=== PATIENT | male | born 1985 | race Caucasian/White ===

== ENCOUNTER → 2020-03-05 08:44 | Outpatient (BNVA) | payer BC, SELFPAY | PROVIDERS: PCP Physician Assistant Medical; Referring Provider Physician Assistant Medical; Visit Provider Surgery | DX: Z76.89 Persons encountering health services in other specified circumstances (principal) ==

== ENCOUNTER 2020-03-10 16:14 | Outpatient (REF) | payer BC, SELFPAY ==
[2020-03-10 17:02] LABS: Hematocrit 45.3 % (42-52); Hemoglobin 15.4 g/dl (14.0-18.0); Mean Corpuscular Volume 85.3 fL (80-98); Mean Platelet Volume 11.9 fL (9.4-12.4); Platelet Count 109 X10*3/uL (160-400); Red Blood Count 5.31 X10*6/uL (4.60-5.80); Red Cell Distribution Width 13.4 % (11.0-16.0)
[2020-03-10 17:11] LABS: Glucose Urine UA NEG (NEG); Leukocyte Esterase Urine NEG (NEG); Nitrite Urine NEG (NEG); Specific Gravity - Urine 1.015 (1.005-1.025); Urine Blood NEG (NEG); Urine Ketones NEG (NEG); Urine Protein NEG (NEG-TRACE)
[2020-03-10 17:34] LABS: Appearance Urine CLEAR; Color Urine YELLOW
[2020-03-10 19:20] LABS: SARS COV2 PCR INHOUSE NEGATIVE (Negative)
== END 2020-03-10 16:15 | disposition home or self-care (01) ==
LOC: HO.LAB 16:14
PROVIDERS: PCP Physician Assistant Medical; Visit Provider Surgery
DX: K40.90 Unilateral inguinal hernia, without obstruction or gangrene, not specified as recurrent (principal); Z20.828 Contact with and (suspected) exposure to other viral communicable diseases
CPT/HCPCS: 36415; 81003; 85027; 87635

== ENCOUNTER 2020-03-11 09:25 | Day surgery (SDC) | payer BC, SELFPAY ==
[2020-03-10 14:09] VITALS: BMI 34.5
--- NOTE | 2020-03-10 14:35 | HO.ANESPROP2 ---
Documented by User: Nely Hernandez 03/10/20 14:56 HPI - Anesthesia Eval Consult details Narrative: 34yo M for Right Inguinal Hernia Repair s/p gastric sleeve 07/2019 with GA-ETT 8 PMFSH Past Medical History Medical History Anxiety Depression History of pancreatitis Obesity (BMI 30-39.9) Recovering alcoholic in remission Family History Family History Father HTN (hypertension) Mother No problems noted. Sister No problems noted. Sister No problems noted. Surgical History Surgical History History of open reduction and internal fixation (ORIF) procedure Status post laparoscopic sleeve gastrectomy Social History Social History Alcohol intake: former Year quit: 2017 Smoking Status: Current every day smoker Tobacco Type: Cigarette Packs Per Day: 1 Cigarettes Per Day: 20.0 Years Smoked: 10 Smoked in Last 30 Days: Yes Patient Given Instructions on How to Stop Smoking: Yes Date Education Initiated: 03/10/20 Use of substances other than those prescribed or required for medical reasons: No Advance Directives: No ([place]) Advance Directives Information Provided: No Advance Directives on File: No Recently lost weight without trying: No 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 Current occupational exposures/hazards: No Meds Allergies Allergy/AdvReac Type Severity Reaction Status Date / Time codeine [CODEINE] Allergy Intermediate UPSET Verified 03/11/20 09:20 STOMACH Home Medications Medication Instructions Recorded Confirmed Type hydroxyzine HCl 50 mg tablet 50 mg PO DAILY 03/05/20 03/10/20 History magnesium oxide 400 mg (241.3 mg 400 mg PO BID 03/05/20 03/10/20 History magnesium) tablet naltrexone 50 mg tablet 50 mg PO DAILY 03/05/20 03/10/20 History sertraline 100 mg tablet 100 mg PO DAILY 03/05/20 03/10/20 History trazodone 50 mg tablet 50 mg PO BEDTIME PRN 03/05/20 03/10/20 History zolpidem 10 mg tablet 10 mg PO BEDTIME PRN 03/05/20 03/10/20 History Exam Exam Date and Time: March 10, 2020 1435 Height,Weight and Vital Signs: Height 5 ft 9 in Weight 106.141 kg Documented by User: Christopher Feldman 03/11/20 10:23 [facility] Past Medical History Medical History Anxiety Depression History of pancreatitis Obesity (BMI 30-39.9) Recovering alcoholic in remission Family History Family History Father HTN (hypertension) Mother No problems noted. Sister No problems noted. Sister No problems noted. Surgical History Surgical History History of open reduction and internal fixation (ORIF) procedure Status post laparoscopic sleeve gastrectomy Social History Social History Alcohol intake: former Year quit: 2017 Smoking Status: Current every day smoker Tobacco Type: Cigarette Packs Per Day: 1 Cigarettes Per Day: 20.0 Years Smoked: 10 Smoked in Last 30 Days: Yes Patient Given Instructions on How to Stop Smoking: Yes Date Education Initiated: 03/10/20 Use of substances other than those prescribed or required for medical reasons: No Advance Directives: No ([place]OWN) Advance Directives Information Provided: No Advance Directives on File: No Recently lost weight without trying: No 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 Current occupational exposures/hazards: No Meds Allergies Allergy/AdvReac Type Severity Reaction Status Date / Time codeine [CODEINE] Allergy Intermediate UPSET Verified 03/11/20 09:20 STOMACH Home Medications Medication Instructions Recorded Confirmed Type hydroxyzine HCl 50 mg tablet 50 mg PO DAILY 03/05/20 03/10/20 History magnesium oxide 400 mg (241.3 mg 400 mg PO BID 03/05/20 03/10/20 History magnesium) tablet naltrexone 50 mg tablet 50 mg PO DAILY 03/05/20 03/10/20 History sertraline 100 mg tablet 100 mg PO DAILY 03/05/20 03/10/20 History trazodone 50 mg tablet 50 mg PO BEDTIME PRN 03/05/20 03/10/20 History zolpidem 10 mg tablet 10 mg PO BEDTIME PRN 03/05/20 03/10/20 History Exam Airway Mallampati Class: II TM Dist: >3cm Neck ROM: Full Loose/Missing/Broken Teeth: No Heart: [id number] Lungs: cta b/l Assessment and Plan Assessment Anesthesia Assessment: Anesthesia Plan Discussed, PAT Visit and Chart Reviewed Final Anesthetic Review NPO: Yes ASA Class: II Final Preanesthetic Review: No Changes in Pt Med Stat, Meds/Allgs Chart Reviewed, Consent Obtained/Reviewed and Anes Risks/Benef Reviewed Patient Risk: Low Procedure Risk: Low Anesthetic Plan Anesthetic Plan: GA Disposition: Standard PACU
[2020-03-11] VITALS (9 sets, daily range): BP systolic 116–145; BP diastolic 55–72; PULSE 47–64; RESP 14–18; TEMP 36.4; O2SAT 94–98
--- NOTE | 2020-03-11 07:35 | MHC.SHP ---
Pre-Procedural Eval Section A The patient is an INPATIENT: No Changes since office visit: No Cold of Flu in the past 2 weeks, No New Medical Problems, No Changes in Medication and No Patient answered all questions The History & Physical has been completed within 30 days and I have reviewed it.: Yes Section B Chief Complaint: hernia Allergies: Allergies Allergy/AdvReac Type Severity Reaction Status Date / Time codeine [CODEINE] Allergy Intermediate UPSET Unverified 03/05/20 09:53 STOMACH Plan Patient has been examined and remains a candidate for the planned procedure
[2020-03-11] MEDS: ceFAZolin Sodium/Dextrose,Iso 2 GM/50 ML PIGGYBACK IV (10:03)
[2020-03-11] MEDS: Lactated Ringers 1,000 ML 125 ML IVCONT (10:04)
[2020-03-11] MEDS: oxyCODONE HCl Immed Release 5 MG TABLET PO (12:58)
--- NOTE | 2020-03-11 14:16 | OP_ITS ---
SURGEON: Elena Gongora MD PREOPERATIVE DIAGNOSIS: Right inguinal hernia. POSTOPERATIVE DIAGNOSIS: Right inguinal hernia. PROCEDURE PERFORMED: Repair of right inguinal hernia with mesh. ESTIMATED BLOOD LOSS: Less than 10 mL. COMPLICATIONS: None. ANESTHESIA: General endotracheal. ASSISTANTS: Keyanna Quinn PA-C. SPECIMENS: Right inguinal hernia sac. FINDINGS: Indirect inguinal hernia that was large and somewhat scarred in. CONDITION: Postprocedure, good. DESCRIPTION OF PROCEDURE: The patient was brought into the operating room, placed on operating table in supine position. Normal DVT prophylaxis was instituted. The patient has already had a shave prep to the right groin and lower abdomen. The right groin was prepped and draped in normal sterile fashion using ChloraPrep. Next, a safety time-out was performed. Next, a mixture of 1% lidocaine with epinephrine 0.25% Marcaine plain was used to anesthetize the planned incision site, which was in the right groin. A #15 scalpel was used to make a 4 to 5 cm transverse surgical incision in the right groin. The subcutaneous tissues were dissected down to the level of the external oblique aponeurosis. The external oblique aponeurosis was cleared off and then was anesthetized using a mixture of local with the previously described. A #15 scalpel was used to make a small incision in the external oblique aponeurosis in the direction of the fibers. This was carried distally using the Metzenbaum scissors through the external inguinal ring. The cord and cord structures were dissected off the overlying aponeurosis. The cord and cord structures were dissected free from the surrounding tissues and then encircled using a [place] drain. We cleared off the floor of the inguinal canal and the pubic tubercle. We noted that there was a large bulge in the proximal cord and cord structures. We cleared the hernia sac away from the cord and cord structures and then performed a high ligation of the hernia sac, resecting the hernia sac and sent for pathology. We then reduced the hernia sac and a lipoma of the cord into the preperitoneal space. We chose a large hernia system mesh and placed the preperitoneal portion within the preperitoneum. We sutured this preperitoneal portion to the pubic tubercle distally to the shelving edge of the inguinal ligament laterally with several interrupted #1 Prolene sutures and medially to the conjoined tendon with several interrupted #1 Prolene sutures. We cut and encircled the cord and cord structures proximally, reapproximated the cut tails of the overlying mesh to each other using a [id number] #1 Prolene suture. We tucked the overlying portion of the mesh under the external oblique aponeurosis and then reapproximated the external oblique aponeurosis to itself using a running 2-0 Vicryl suture. We then placed local anesthetic into the fascia and to the subcutaneous tissues. We reapproximated the deep dermal tissues using several interrupted 3-0 Vicryl sutures. Overlying skin was closed with 4-0 Monocryl subcuticular stitch. We cleaned and dried the skin and applied Dermabond skin glue to the skin incision. All counts were correct at the end of the case. There were no complications. The patient was awakened in stable condition prior to extubation and transferred to recovery room. MD VALARIE Mayo/VERITOL / [id number]
== END 2020-03-11 14:45 | disposition home or self-care (01) ==
PROVIDERS: Surgery; PCP Physician Assistant Medical; Visit Provider Anesthesiology
PROC: (CPT 49505; principal; 2020-03-11 10:50)
DX: K40.90 Unilateral inguinal hernia, without obstruction or gangrene, not specified as recurrent (principal); D17.6 Benign lipomatous neoplasm of spermatic cord; F10.21 Alcohol dependence, in remission; F41.8 Other specified anxiety disorders; F17.210 Nicotine dependence, cigarettes, uncomplicated; Z88.8 Allergy status to other drugs, medicaments and biological substances; Z79.899 Other long term (current) drug therapy; Z98.84 Bariatric surgery status
CPT/HCPCS: 49505; 86850; 86900; 86901; 88302; C1781; J0131; J0690; J1100; J1170; J2250; J2405; J3010

== ENCOUNTER 2020-03-17 13:42 | Outpatient (REF) | payer BC, SELFPAY ==
--- NOTE | 2020-03-17 13:47 | CT_ITS ---
EXAMINATION: CT ABDOMEN AND PELVIS WITH CONTRAST CLINICAL INFORMATION: Right upper quadrant pain post gastric bypass COMPARISON: Previous abdominal ultrasound February 2019 TECHNIQUE: Multidetector volumetric images were obtained from the superior aspect of the liver through the pubic symphysis following administration 85 mL of Omnipaque 350 intravenous contrast. Sagittal and coronal reformatted images were obtained on the technologist's workstation. Oral contrast: No This CT examination was performed using dose optimization techniques as appropriate, variously including the following: *Automated exposure control *Adjustment of mA and/or kV according to patient size (this includes techniques or standardized protocols for targeted exams where dose is matched to indication/reason for exam; i.e. extremities or head) *Use of iterative reconstruction technique DLP: 793 mGy-cm FINDINGS: LUNG BASES: The visualized lung bases are unremarkable. LIVER, GALLBLADDER, AND BILIARY TREE: The liver is enlarged. The right lobe measures 20 cm in length. The liver is slightly low in attenuation suggestive of fatty infiltration. The liver is normal in contour. No focal liver lesion is seen. The gallbladder is contracted. There is no biliary duct dilatation. PANCREAS: There is a bilobed low-attenuation lesion in the tail of the pancreas. Measured as 2 adjacent lesions in these measure 1.5 x 2 and 2.4 x 1.8 cm in transverse and AP dimension measured as one bilobed lesion this measures approximately 3.6 x 2.3 cm in transverse and AP dimension. Hounsfield units measure between 23 and 40 postcontrast not compatible with a simple cyst. It may have a small calcification. It is uncertain whether this represents a complex cystic or solid lesion. The head and body of pancreas are normal. The splenic vein is occluded. There are extensive perigastric and perisplenic collateral vessels. SPLEEN: Unremarkable. ADRENAL GLANDS: Unremarkable. KIDNEYS AND URETERS: There is a small 1 cm cyst exophytic to the lateral mid left kidney. The kidneys are otherwise unremarkable. BLADDER: Bladder is not optimally distended and not well evaluated. GASTROINTESTINAL TRACT: Small and large bowel is unremarkable. The appendix is unremarkable. There are postsurgical changes from gastric sleeve procedure. The stomach is otherwise normal. No abnormal air or fluid collection is seen. ABDOMINAL WALL: There are postsurgical changes in the right inguinal region with soft tissue thickening, stranding of the subcutaneous fat and skin thickening. There are several small pockets of fluid and air seen. Appearance is compatible with postsurgical changes given history of recent right inguinal hernia repair less than a week ago. LYMPH NODES: There are small abdominal retroperitoneal lymph nodes. There are prominent right inguinal lymph nodes.. VASCULAR: The splenic vein is occluded. There are extensive perigastric and perisplenic collateral vessels seen. The SMV and main portal vein are patent. PELVIC VISCERA: There is a large 3 x 3 x 4.5 cm cyst in the central prostate gland. Hounsfield units following contrast measure between 25 and 30 suggestive of a complex cyst. There is a small amount of fluid in the pelvis superior to the bladder. OSSEOUS STRUCTURES: There are mild degenerative changes of the spine. There is slight loss of height of the lower thoracic vertebral bodies, T10, T11 and T12 questionable for mild old compression fractures versus developmental variant. IMPRESSION: Bilobed low-attenuation lesion in the tail of the pancreas questionable for complex cystic versus solid lesion. 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 Neoplasm and complex pseudocyst should be considered. Follow-up dedicated pancreatic imaging with CT or MR recommended. Postoperative change from gastric sleeve. Hepatosplenomegaly. Fatty liver. Large 3 x 3 x 4.5 cm cyst in the central prostate gland probably representing a complex cyst. Abscess should be excluded. Post surgical changes in the right inguinal region. Findings will be communicated by the [place] work flow face hardener Mary Guadarrama.
[2020-03-17] MEDS: iohexoL 350 MG/ML 100 ML INFUS..BTL IV (15:36)
[2020-03-17] MEDS: Barium Sulfate Oral (Mocha) 450 ML ORAL.SUSP 900 ML PO (15:37)
== END 2020-03-17 13:43 | disposition home or self-care (01) ==
LOC: HO.CT 13:42
PROVIDERS: Visit Provider Surgery
DX: K40.90 Unilateral inguinal hernia, without obstruction or gangrene, not specified as recurrent (principal); E66.9 Obesity, unspecified; R10.11 Right upper quadrant pain; Z98.84 Bariatric surgery status
CPT/HCPCS: 74177

== ENCOUNTER → 2020-03-23 08:08 | Outpatient (BNVA) | payer BC, SELFPAY | PROVIDERS: PCP Physician Assistant Medical; Referring Provider Family Medicine; Visit Provider Surgery | DX: Z13.89 Encounter for screening for other disorder (principal) ==

== ENCOUNTER 2020-04-03 12:53 | Outpatient (REF) | payer BC, SELFPAY ==
--- NOTE | 2020-04-03 12:56 | CT_ITS ---
EXAMINATION: CT ABDOMEN AND PELVIS WITHOUT AND WITH CONTRAST CLINICAL INFORMATION: Follow-up abnormal pancreas COMPARISON: Previous CT of the abdomen and pelvis February 2020 and abdominal ultrasound February 2019 TECHNIQUE: Multidetector volumetric imaging was performed of the abdomen and pelvis before and after the IV administration of 85 mL of Omnipaque 300 intravenous contrast. Sagittal and coronal reformatted images were obtained on the technologist's workstation. This CT examination was performed using dose optimization techniques as appropriate, variously including the following: *Automated exposure control *Adjustment of mA and/or kV according to patient size (this includes techniques or standardized protocols for targeted exams where dose is matched to indication/reason for exam; i.e. extremities or head) *Use of iterative reconstruction technique DLP: 1683 mGy-cm FINDINGS: LUNG BASES: There is a 6 x 10 mm groundglass attenuation nodule in the right lower lobe. This is new from recent exam 03/17/2020 favoring an infectious or inflammatory process. The lung bases are otherwise clear. LIVER, GALLBLADDER, AND BILIARY TREE: The liver is normal in size, shape, and attenuation. No focal hepatic lesion or biliary ductal dilatation is present. The gallbladder is unremarkable with no evidence of radiopaque gallstones, gallbladder wall thickening, or obvious pericholecystic inflammatory changes. PANCREAS: There is a bilobed cystic lesion in the tail of the pancreas. Measured as 2 cysts, these measure 1.7 x 1.8 cm and 2.5 x 2.2 cm. Measured as one bilobed cystic lesion with septation, these measure 2.6 x 4 cm. Hounsfield units precontrast measure 11. Hounsfield units post-IV contrast measure between 17 and 25 with minimal evidence of enhancement. There does appear to be areas of wall thickening and minimal wall enhancement. No definite solid component is seen. The pancreas is otherwise unremarkable. The main pancreatic duct does not appear dilated. SPLEEN: The spleen is slightly enlarged measuring 16.3 cm in length. ADRENAL GLANDS: Unremarkable KIDNEYS AND URETERS: There are small bilateral renal cysts. BLADDER: Not optimally distended. GASTROINTESTINAL TRACT: The small and large bowel are unremarkable. The appendix is unremarkable. There are postsurgical changes from gastric sleeve procedure. ABDOMINAL WALL: There are postsurgical changes to the right inguinal region following hernia repair. These appear improved from February 2020 CT scan. LYMPH NODES: There are small retroperitoneal lymph nodes. No enlarged lymph nodes are seen. There is trace ascites in the pelvis. VASCULAR: The splenic vein is occluded. The SMV and portal vein are patent. There are left upper quadrant varices adjacent to the spleen and stomach. PELVIC VISCERA: There is a 2.6 cm cyst in the central prostate gland. The prostate gland does not appear enlarged. OSSEOUS STRUCTURES: There are degenerative changes of the spine. There may be a unilateral left L5 pars defect. There is left-sided facet arthritis at L5-S1. There is slight loss of height of the lower thoracic vertebral bodies questionable for old mild compression fractures versus developmental variant. CT/CT abdomen pelvis wo/w con IMPRESSION: Bilobed complex cystic lesion in the tail of the pancreas with minimal wall thickening and enhancement. The main pancreatic duct does not appear dilated. Occluded splenic vein and varices. Enlarged spleen. Differential would include pancreatic pseudocyst related to previous pancreatitis and neoplasm. Postsurgical changes following gastric sleeve and right inguinal hernia repair. Small bilateral renal cysts. Stable 2.6 cm cyst in the prostate gland. New subcentimeter groundglass attenuation right lower lobe nodule from February 2020 probably representing an infectious or inflammatory process.
[2020-04-03] MEDS: iohexoL 350 MG/ML 100 ML INFUS..BTL IV (15:12)
[2020-04-03] MEDS: Barium Sulfate Oral (Berry) 450 ML ORAL.SUSP 900 ML PO (15:19)
== END 2020-04-03 12:54 | disposition home or self-care (01) ==
LOC: HO.CT 12:53
PROVIDERS: Visit Provider Surgery
DX: R10.11 Right upper quadrant pain (principal); Z98.84 Bariatric surgery status
CPT/HCPCS: 74178; Q9967

== ENCOUNTER → 2020-05-01 07:57 | Outpatient (BNVA) | payer BC, SELFPAY | PROVIDERS: PCP Physician Assistant Medical; Referring Provider Physician Assistant Medical; Visit Provider Surgery | DX: Z76.89 Persons encountering health services in other specified circumstances (principal) ==

== ENCOUNTER → 2020-05-12 09:36 | Outpatient (BNVA) | payer BC, SELFPAY | PROVIDERS: PCP Physician Assistant Medical; Referring Provider Physician Assistant Medical; Visit Provider Internal Medicine Gastroenterology | DX: Z76.89 Persons encountering health services in other specified circumstances (principal) ==

== ENCOUNTER 2020-06-03 16:34 | Outpatient (REF) | payer OTHER, SELFPAY ==
--- NOTE | 2020-06-03 16:36 | MR_ITS ---
EXAMINATION: MR ABDOMEN WITHOUT AND WITH CONTRAST CLINICAL INFORMATION: Lesion pancreatic tail on CT. COMPARISON: Ultrasound abdomen 03/25/2019, CT abdomen and pelvis with contrast 03/17/2020, CT abdomen and pelvis without and with contrast 04/03/2020. TECHNIQUE: MR abdomen was performed without and with use of 10 mL intravenous Gadavist gadolinium contrast. Imaging was performed in 3 planes. Additional MRCP sequence included. FINDINGS: LUNG BASES: The visualized lung bases are unremarkable. LIVER, GALLBLADDER, AND BILIARY TREE: Liver is normal in size and smooth in contour and normal in signal. There is no focal hepatic parenchymal lesion. No hepatic enhancing lesion or lesion with washout. The gallbladder is unremarkable with no evidence of gallbladder wall thickening, or obvious pericholecystic inflammatory changes. PANCREAS: The pancreatic head and neck and body are unremarkable. There is no mass or ductal dilatation or peripancreatic inflammatory changes. The bilobed lesion pancreatic tail noted on CT measures approximately 2.4 x 3.3 cm. It has mild heterogeneous signal similar to pancreatic parenchymal signal on noncontrast T1 and T2 with a single focus of increased T2 signal internally measuring under 1 cm. There is no appreciable enhancement on arterial or portal venous phase imaging and probable mild enhancement on delayed imaging, similar to the CT exam. SPLEEN: Enlarged measuring 15.3 cm. Parenchyma uniform in signal. ADRENAL GLANDS: Normal. KIDNEYS AND URETERS: The kidneys are normal in size, shape, and enhance symmetrically. No hydronephrosis. No perinephric stranding. Again, there is a small exophytic lesion posterior left kidney measuring 1 cm. There is some trace posterior rim enhancement. No internal solid nodular component. GASTROINTESTINAL TRACT: Status post gastric sleeve. ABDOMINAL WALL: No significant hernia is appreciated. LYMPH NODES: No lymphadenopathy. VASCULAR: Numerous venous collaterals left upper quadrant. The splenic vein does not enhance. Findings similar to CT. OSSEOUS STRUCTURES: Marrow signal normal. MR/MR abdomen wo/w con IMPRESSION: 1. Nonspecific pancreatic tail lesion similar to recent CT study with probable mild delayed enhancement. The lesion is not consistent with a simple pseudocyst. PET/CT may be helpful to further characterize and assist with risk assessment. 2. Splenomegaly with splenic vein occlusion and numerous left upper quadrant venous collaterals similar to recent imaging. No ascites. 3. Mildly complicated 1 cm left renal cyst.
== END 2020-06-03 16:35 | disposition home or self-care (01) ==
LOC: HO.MRI 16:34
PROVIDERS: Visit Provider Internal Medicine Gastroenterology
DX: K86.9 Disease of pancreas, unspecified (principal)
CPT/HCPCS: 74183; A9585

== ENCOUNTER → 2020-06-08 08:16 | Outpatient (BNVA) | payer BC, SELFPAY | PROVIDERS: PCP Physician Assistant Medical; Visit Provider Surgery | DX: Z76.89 Persons encountering health services in other specified circumstances (principal) ==

== ENCOUNTER → 2020-07-15 08:21 | Outpatient (BNVA) | payer OTHER, SELFPAY | PROVIDERS: PCP Physician Assistant Medical; Visit Provider Surgery ==

== ENCOUNTER → 2020-08-31 09:51 | Outpatient (BNVA) | payer OTHER, SELFPAY | PROVIDERS: PCP Physician Assistant Medical; Visit Provider Surgery ==

== ENCOUNTER → 2020-09-17 15:35 | Outpatient (BNVA) | payer OTHER, SELFPAY | PROVIDERS: PCP Physician Assistant Medical; Visit Provider Surgery ==

== ENCOUNTER 2020-10-07 09:40 | Day surgery (SDC) | payer OTHER, SELFPAY ==
[2020-10-01 20:25] VITALS: BMI 31.9
--- NOTE | 2020-10-06 08:59 | HO.ANESPROP2 ---
Documented by User: Nely Nolandney 10/06/20 09:00 HPI - Anesthesia Eval Consult details Narrative: 35yo M for Left Inguinal Hernia Repair s/p R inguinal hernia with GA-LMA 5 02/2020 s/p gastric sleeve 07/2019 PMFSH Active Problems Active Problems: All Active Problems (Updated 09/17/20 @ 16:32 by Elena Gongora MD) Left inguinal hernia (Acute) Preoperative examination (Acute) BMI 34.0-34.9,adult (Acute) BMI 32.0-32.9,adult (Acute) BMI 33.0-33.9,adult (Acute) Obesity (Acute) Pancreatic lesion (Acute) Cyst of prostate (Acute) Right inguinal hernia (Acute) Obesity (BMI 30-39.9) (Acute) Past Medical History Medical History Anxiety Depression History of pancreatitis Obesity (BMI 30-39.9) Pancreatic lesion Recovering alcoholic in remission Sinus bradycardia Family History Family History Father HTN (hypertension) Mother No problems noted. Sister No problems noted. Sister No problems noted. Surgical History Surgical History History of hernia repair History of open reduction and internal fixation (ORIF) procedure Hx of endoscopy Status post laparoscopic sleeve gastrectomy Social History Social History Alcohol intake: former Year quit: 2017 Smoking Status: Current every day smoker Tobacco Type: Cigarette Packs Per Day: 0.5 Cigarettes Per Day: 10.0 Years Smoked: 10 Smoked in Last 30 Days: Yes Patient Given Instructions on How to Stop Smoking: Yes Date Education Initiated: 10/01/20 Second Hand Smoke Exposure: No Use of substances other than those prescribed or required for medical reasons: Yes Substance Use Type: Marijuana Substance Use Frequency: Weekly Are you DNR?: No Advance Directives: No Advance Directives Information Provided: No Advance Directives on File: No Recently lost weight without trying: No Nutrition Risks: No Nutritional Risk 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 Current occupational exposures/hazards: No Meds Allergies Allergy/AdvReac Type Severity Reaction Status Date / Time codeine [CODEINE] Allergy Intermediate UPSET Verified 09/17/20 16:35 STOMACH Home Medications Medication Instructions Recorded Confirmed Last Taken Type hydroxyzine HCl 50 mg tablet 50 mg PO DAILY 03/05/20 10/01/20 Unknown History magnesium oxide 400 mg (241.3 mg 400 mg PO BID 03/05/20 10/01/20 Unknown History magnesium) tablet sertraline 100 mg tablet 100 mg PO DAILY 03/05/20 10/01/20 Unknown History trazodone 50 mg tablet 50 mg PO BEDTIME PRN 03/05/20 10/01/20 Unknown History zolpidem 10 mg tablet 10 mg PO BEDTIME PRN 03/05/20 10/01/20 Unknown History calcium citrate 1,000 mg tablet 1,000 mg PO DAILY 09/17/20 10/01/20 Unknown History [id number]-lqftzikb-mfgu 45 mg-folic 1 cap PO DAILY cap 09/17/20 10/01/20 Unknown History acid 800 mcg-vit K 120 mcg capsule Exam Exam Date and Time: October 06, 2020 0859 Height,Weight and Vital Signs: Height 5 ft 8 in Weight 95.254 kg Assessment and Plan Assessment Anesthesia Assessment: Chart Reviewed Documented by User: Destiny Tamayo 10/07/20 11:59 PMFSH Past Medical History Medical History Anxiety Depression History of pancreatitis Obesity (BMI 30-39.9) Pancreatic lesion Recovering alcoholic in remission Sinus bradycardia Family History Family History Father HTN (hypertension) Mother No problems noted. Sister No problems noted. Sister No problems noted. Surgical History Surgical History History of hernia repair History of open reduction and internal fixation (ORIF) procedure Hx of endoscopy Status post laparoscopic sleeve gastrectomy Social History Social History Alcohol intake: former Year quit: 2017 Smoking Status: Current every day smoker Tobacco Type: Cigarette Packs Per Day: 0.5 Cigarettes Per Day: 10.0 Years Smoked: 10 Smoked in Last 30 Days: Yes Patient Given Instructions on How to Stop Smoking: Yes Date Education Initiated: 10/01/20 Second Hand Smoke Exposure: No Use of substances other than those prescribed or required for medical reasons: Yes Substance Use Type: Marijuana Substance Use Frequency: Weekly Are you DNR?: No Advance Directives: No Advance Directives Information Provided: No Advance Directives on File: No Recently lost weight without trying: No Nutrition Risks: No Nutritional Risk 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 [employer] Current occupational exposures/hazards: No Meds Allergies Allergy/AdvReac Type Severity Reaction Status Date / Time codeine [CODEINE] Allergy Intermediate UPSET Verified 09/17/20 16:35 STOMACH Home Medications Medication Instructions Recorded Confirmed Last Taken Type hydroxyzine HCl 50 mg tablet 50 mg PO DAILY 03/05/20 10/01/20 Unknown History magnesium oxide 400 mg (241.3 mg 400 mg PO BID 03/05/20 10/01/20 Unknown History magnesium) tablet sertraline 100 mg tablet 100 mg PO DAILY 03/05/20 10/01/20 Unknown History trazodone 50 mg tablet 50 mg PO BEDTIME PRN 03/05/20 10/01/20 Unknown History zolpidem 10 mg tablet 10 mg PO BEDTIME PRN 03/05/20 10/01/20 Unknown History calcium citrate 1,000 mg tablet 1,000 mg PO DAILY 09/17/20 10/01/20 Unknown History drgbnjif-oxrtwtnk-vqmo 45 mg-folic 1 cap PO DAILY cap 09/17/20 10/01/20 Unknown History acid 800 mcg-vit K 120 mcg capsule Exam Airway Mallampati Class: II TM Dist: >3cm Neck ROM: Full Assessment and Plan Assessment Anesthesia Assessment: Anesthesia Plan Discussed and Chart Reviewed Final Anesthetic Review ASA Class: II Final Preanesthetic Review: No Changes in Pt Med Stat, Meds/Allgs Chart Reviewed, Consent Obtained/Reviewed and Anes Risks/Benef Reviewed Patient Risk: Low Procedure Risk: Low Assessment/Block/Sedation in SS: Assess/Block/Sedation-SS Anesthetic Plan Anesthetic Plan: GA Disposition: Standard PACU
--- NOTE | 2020-10-06 13:57 | MHC.SHP ---
Pre-Procedural Eval Section B Chief Complaint: hernia Allergies: Allergies Allergy/AdvReac Type Severity Reaction Status Date / Time codeine [CODEINE] Allergy Intermediate UPSET Verified 09/17/20 16:35 STOMACH Plan I have reviewed the history and physical and performed a pertinent physical examination on my patient. No changes have occurred unless specified.
[2020-10-07] VITALS (11 sets, daily range): BP systolic 103–132; BP diastolic 55–83; PULSE 48–64; RESP 14–18; TEMP 36.4; O2SAT 93–100
[2020-10-07] MEDS: Lactated Ringers 1,000 ML 100 ML IVCONT (10:14)
[2020-10-07 10:30] LABS: COVID-19 Test Negative (Negative)
--- NOTE | 2020-10-07 14:24 | PM.OP ---
Brief Operative Note Date of Service: 10/07/20 Pre-op diagnosis: Left inguinal hernia Post-op diagnosis: same Procedure: Open repair of left inguinal hernia with mesh Implants: Prolene hernia system mesh size medium Surgeon: Elena Gongora MD Anesthesia: GLMA Was an Towel Stretcher used for this Procedure?: Yes Towel Stretcher: Keyanna Quinn Estimated blood loss (mL): 5 Pathology: none sent Condition: stable Disposition: PACU
--- NOTE | 2020-10-07 14:32 | P.OP_ITS ---
Operative Note Operative Note Date of Service: 10/07/20 Narrative: Patient was brought into the operating room, placed on operating room table in the supine position. Safety time-out was performed. General anesthesia was induced. Patient received 2 g of IV Kefzol preoperatively. Bilateral groins and lower abdomen as well as scrotum was shaved with electric clippers and then prepped and draped in the normal sterile fashion using ChloraPrep. The left groin was marked for the planned incision site. Local anesthetic of 1% lidocaine with epinephrine and 0.25% Marcaine plain was used to anesthetize the planned incision site. A 15. Scalpel used to make a 4 cm transverse surgical incision in the left groin. The subcutaneous tissues were dissected using the cautery down to the external oblique aponeurosis. Local anesthetic was instilled into the external oblique aponeurosis and a 15. Scalpel used to make a small incision in the external oblique aponeurosis in the direction of the fibers. A Metzenbaum scissors was used to extend the incision through the external inguinal ring. The cord and cord structures were dissected off the overlying external oblique aponeurosis. The cord and cord structures were encircled and a [place] drain was placed around the cord and cord st ructures. The pubic tubercle was cleared off distally. A direct inguinal hernia sac could be seen within the cord and cord structures. The cremasteric fibers were divided and the hernia sac was isolated and cleared away from the cord and cord structures. The hernia sac was cleared proximally and then completely reduced into the preperitoneal space. The preperitoneal space was cleared using a finger. A suitable size mesh which was a size medium hernia system mesh was used to repair the hernia. A dual mesh was used with the inferior portion placed into the preperitoneal space and the overlying portion of this mesh was placed as an onlay fashion on the external oblique aponeurosis. The underlying preperitoneal portion of the mesh was then sutured medially to the conjoined tendon using several interrupted #1 Prolene sutures. It was sutured laterally to the shelving edge of the inguinal ligament using several interrupted #1 Prolene sutures. It was sutured inferiorly to the pubic t ubercle. The overlying mesh was then sutured in an onlay fashion to the conjoined tendon medially and the shelving edge of the inguinal ligament laterally. A slit was made in the overlying portion of the mesh and the tails of this overlying portion of the mesh were fashioned around the cord and cord structures to recreate the external inguinal ring. The tails of the mesh were then reapproximated around the cord and cord structures using a [id number] #1 Prolene suture. Local anesthetic was instilled into the fascia. The external oblique aponeurosis was reapproximated using a running 3-0 Vicryl suture. The Bisi's fascia was then reapproximated in the soft tissues using a running 2 0 Vicryl suture. Overlying skin was closed with a 4-0 Monocryl subcuticular stitch. The subcutaneous tissues were anesthetized once again with the local anesthetic used at the beginning of the case. The skin was clean and dried. Dermabond was placed over the skin incision. All counts were correct at the end the case. The patient was awake and in stable condition prior to extubation and then transferred to the recovery room.
[2020-10-07] MEDS: oxyCODONE HCl Immed Release 5 MG TABLET PO (14:41)
[2020-10-07] MEDS: Acetaminophen 325 MG TABLET 650 MG PO (14:42)
[2020-10-07] MEDS: fentaNYL citrate/PF 100 MCG/2 ML VIAL 50 MCG IVPUSH ×3 (14:56→15:26)
== END 2020-10-07 16:06 | disposition home or self-care (01) ==
PROVIDERS: PCP Physician Assistant Medical; Visit Provider Surgery
PROC: (CPT 49505; principal; 2020-10-07 11:20)
DX: K40.90 Unilateral inguinal hernia, without obstruction or gangrene, not specified as recurrent (principal); F17.210 Nicotine dependence, cigarettes, uncomplicated; F10.21 Alcohol dependence, in remission; F12.90 Cannabis use, unspecified, uncomplicated; Z98.84 Bariatric surgery status
CPT/HCPCS: 49505; 36415; 87635; C1781; J0690; J1100; J2250; J2405; J3010

== ENCOUNTER 2020-10-10 13:05 | Emergency (ER) | payer OTHER, SELFPAY ==
[2020-10-10 13:36] VITALS: BP 118/68; PULSE 76; RESP 16; TEMP 37.5; O2SAT 99; BMI 30.9
[2020-10-10 14:04] LABS: COVID-19 Test Negative (Negative); IDNOW Serial# 9DD0AD1C
[2020-10-10] MEDS: Acetaminophen 325 MG TABLET 650 MG PO (16:10)
[2020-10-10 16:25] LABS: Imm Gran Abs Auto 0.03 X10*3/uL (0.00-0.03); Imm Gran Pct Auto 0.5 % (0.0-0.4); MANUAL DIFF FLAG SCAN; PLT CLUMP 1; Red Cell Distribution Width 13.5 % (11.0-16.0); SCAN SMEAR FLAG 1
[2020-10-10 16:27] LABS: Basophils Percent Auto 0.7 % (0-2); Eosinophils Absolute Auto 0.1 X10*3/uL (0.0-0.4); Eosinophils Percent Auto 1.7 % (0-4); Hematocrit 35.7 % (42-52); Lymphocytes Absolute Auto 1.5 X10*3/uL (1.2-4.9); Lymphocytes Percent Auto 24.5 % (20-40); Mean Corpuscular HGB Conc 33.6 g/dl (31.0-36.0); Mean Corpuscular Hemoglobin 29.5 pg (27.0-33.0); Mean Corpuscular Volume 87.7 fL (80-98); Mean Platelet Volume 11.6 fL (9.4-12.4); Monocytes Absolute Auto 0.4 X10*3/uL (0.1-1.2); Monocytes Percent Auto 6.5 % (2-11); Neutrophils Percent Auto 66.1 % (45-73); Red Blood Count 4.07 X10*6/uL (4.60-5.80)
[2020-10-10 16:44] LABS: Platelet Count 81 X10*3/uL (160-400); SLIDE REVIEW VERIFIED
[2020-10-10 16:51] LABS: Anion Gap 13 (12-20); Blood Urea Nitrogen 8 mg/dL (9-16); Calcium 9.2 mg/dL (8.4-10.2); Carbon Dioxide 28 mmol/L (22-29); Chloride 102 mmol/L (96-108); Creatinine Clr Calc Pharmacy 172.8; Estimated Glomerular Filt Rate > 60; Glucose Random 89 mg/dL (60-115); Potassium 3.7 mmol/L (3.3-5.1); Sodium 139 mmol/L (135-145)
== END 2020-10-10 17:08 | disposition left against medical advice (07) ==
PROVIDERS: Emergency Provider Emergency Medicine Emergency Medical Services; PCP Physician Assistant Medical
DX: R50.9 Fever, unspecified (principal); G89.18 Other acute postprocedural pain; Z98.890 Other specified postprocedural states
CPT/HCPCS: 36415; 80048; 85025; 87635; 99283

== ENCOUNTER → 2020-10-19 08:17 | Outpatient (BNVA) | payer OTHER, SELFPAY | PROVIDERS: PCP Physician Assistant Medical; Visit Provider Surgery ==

== ENCOUNTER → 2020-10-27 13:11 | Outpatient (BNVA) | payer OTHER, SELFPAY | PROVIDERS: PCP Physician Assistant Medical; Visit Provider Surgery ==

== ENCOUNTER → 2020-11-23 09:46 | Outpatient (BNVA) | payer OTHER, SELFPAY | PROVIDERS: PCP Physician Assistant Medical; Visit Provider Surgery ==

== ENCOUNTER → 2022-09-08 16:25 | Outpatient (BNVA) | payer OTHER, SELFPAY | PROVIDERS: PCP Physician Assistant Medical; Visit Provider Physician Assistant Surgical | DX: Z13.89 Encounter for screening for other disorder (principal) ==